=== PATIENT | female | born 1990 | race Caucasian/White ===

== ENCOUNTER 2022-03-19 16:49 | Inpatient (IN) | payer MEDICAID ==
[~2022-03-19] VITALS: Ht 170.2 cm; Wt 53.3 kg
[2022-03-19 19:24] LABS: BASOPHILS % (AUTO) 1.1 % (0.0-2.0); EOSINOPHILS % (AUTO) 1.1 % (1.0-6.0); HEMOGLOBIN 12.4 g/dL (12.0-16.0); LYMPHOCYTES # (AUTO) 1.9 K/uL (1.0-4.8); MEAN CORPUSCULAR HEMOGLOBIN 28.7 pg (26.0-34.0); MEAN CORPUSCULAR HGB CONC 32.6 G/dL (31.0-37.0); MEAN CORPUSCULAR VOLUME 88 fL (80-100); MONOCYTES # (AUTO) 0.5 K/uL (0.1-1.0); MONOCYTES % (AUTO) 9.7 % (2.0-9.0); NEUTROPHILS # (AUTO) 2.3 K/uL (1.8-7.7); NEUTROPHILS % (AUTO) 49.1 % (40.0-70.0); PLATELET COUNT (AUTO) 355 K/uL (150-450); RED BLOOD CELL COUNT(AUTO) 4.32 MIL/uL (4.00-5.20); RED CELL DISTRIBUTION WIDTH 15.2 % (11.5-14.5)
[2022-03-19 19:34] LABS: ANION GAP 6 mmol/L (8-16); CALCIUM, TOTAL 9.6 mg/dL (8.8-10.5); CARBON DIOXIDE 29 mmol/L (22-29); CHLORIDE 100 mmol/L (98-107); CREATININE 0.66 mg/dL (0.60-1.30); GLUCOSE,RANDOM 85 mg/dL (70-110); POTASSIUM 3.9 mmol/L (3.5-5.1); SODIUM SERUM 135 mmol/L (136-145); UREA NITROGEN, BLOOD 19 mg/dL (7-18)
[2022-03-19 19:38] LABS: GLOMERULAR FILTR. RATE CALC > 60 mL/min (>60)
[2022-03-19 19:40] LABS: ALANINE AMINOTRANSFERASE 19 U/L (12-78); ALBUMIN 3.6 g/dL (3.4-5.0); ALKALINE PHOSPHATASE 101 U/L (46-116); ASPARTATE AMINOTRANSFERASE 20 U/L (15-37); BILIRUBIN,TOTAL 0.2 mg/dL (0.1-1.0)
[2022-03-19 19:46] LABS: AMPHET/METH SCREEN,URINE POSITIVE (NEGATIVE); BARBITURATE SCREEN, URINE NEGATIVE (NEGATIVE); BENZODIAZEPINES SCREEN,URINE NEGATIVE (NEGATIVE); CANNABINOID SCREEN,URINE NEGATIVE (NEGATIVE); COCAINE SCREEN,URINE NEGATIVE (NEGATIVE); METHADONE SCREEN, URINE NEGATIVE (NEGATIVE); OPIATE SCREEN,URINE NEGATIVE (NEGATIVE); PHENCYCLIDINE SCREEN,URINE NEGATIVE (NEGATIVE)
[2022-03-19] MEDS ORDERED: LORazepam 2 MG/ML VIAL IM ONE (20:00)
[2022-03-19] MEDS ORDERED: HALOPERIDOL LACTATE 5 MG/ML VIAL IM ONE (20:00)
[2022-03-19] MEDS ORDERED: DiphenhydrAMINE HCL 50 MG/ML VIAL IM ONE (20:00)
[2022-03-19 20:45] LABS: APPEARANCE,URINE HAZY (CLEAR); BILIRUBIN,URINE NEGATIVE (NEGATIVE); GLUCOSE, URINE (UA) NEGATIVE (NEGATIVE); KETONES,URINE NEGATIVE (NEGATIVE); LEUKOCYTE ESTERASE ,URINE TRACE (NEGATIVE); NITRATE,URINE NEGATIVE (NEGATIVE); OCCULT BLOOD,URINE NEGATIVE (NEGATIVE); PROTEIN,URINE NEGATIVE (NEGATIVE); UROBILINOGEN,URINE <=1.0 mg/dL (<=1.0)
[2022-03-19] MEDS ORDERED: HALOPERIDOL 5 MG TABLET PO PRN (20:45)
[2022-03-19] MEDS ORDERED: LORazepam 2 MG TABLET PO PRN (20:45)
[2022-03-19 20:57] LABS: BACTERIA,URINE Rare /HPF (None Seen); RBC,URINE 0-2 /HPF (0-2); SQUAMOUS EPITHELIAL CELL,UR Few /LPF (None Seen)
[2022-03-19 22:55] LABS: COVID AG,FIA SOURCE NASOPHARYNGEAL
[2022-03-20 09:00] VITALS: BP 122/86
[2022-03-20 09:05] VITALS: BP 122/86
[2022-03-20 17:00] VITALS: BP 115/62
[2022-03-20] MEDS: OLANZapine 7.5 MG TABLET PO SCH (20:25)
[2022-03-20] MEDS: ZOLPIDEM TARTRATE 10 MG TABLET PO PRN (20:25)
[2022-03-21 08:24] VITALS: BP 116/54
[2022-03-21] MEDS: OLANZapine 7.5 MG TABLET PO SCH (20:10)
[2022-03-21] MEDS: ZOLPIDEM TARTRATE 10 MG TABLET PO PRN (20:10)
[2022-03-22 08:08] VITALS: BP 110/65
[2022-03-22] MEDS: OLANZapine 7.5 MG TABLET PO SCH (20:17)
[2022-03-23 08:41] VITALS: BP 135/87
[2022-03-23] MEDS: ZOLPIDEM TARTRATE 10 MG TABLET PO PRN (20:22)
[2022-03-23] MEDS: OLANZapine 7.5 MG TABLET PO SCH (20:22)
[2022-03-24 08:26] VITALS: BP 106/62
[2022-03-24] MEDS: OLANZapine 7.5 MG TABLET PO SCH (20:11)
[2022-03-25 06:54] LABS: COVID AG,FIA SOURCE NASAL SWAB
[2022-03-25 08:05] VITALS: BP 115/62
[2022-03-25] MEDS: ZOLPIDEM TARTRATE 10 MG TABLET PO PRN (20:11)
[2022-03-25] MEDS: OLANZapine 7.5 MG TABLET PO SCH (20:11)
[2022-03-26 09:37] VITALS: BP 129/72
[2022-03-26 16:40] VITALS: BP 112/75
[2022-03-26] MEDS: OLANZapine 7.5 MG TABLET PO SCH (20:51)
[2022-03-27 08:29] VITALS: BP 112/73
[2022-03-27 16:30] VITALS: BP 118/75
[2022-03-27] MEDS ORDERED: OLAN7.5T22 PO (19:44)
[2022-03-27] MEDS: OLANZapine 7.5 MG TABLET PO SCH (20:52)
== END 2022-03-28 07:58 | disposition home or self-care (01) | DRG 750 ==
LOC: EMS 16:52 → 3EC 23:00
PROVIDERS: ADMIT Psychiatry & Neurology Child & Adolescent Psychiatry; ATTEND Psychiatry & Neurology Child & Adolescent Psychiatry
DX: F20.0 Paranoid schizophrenia (principal); E87.1 Hypo-osmolality and hyponatremia; R45.851 Suicidal ideations; F15.10 Other stimulant abuse, uncomplicated; F19.10 Other psychoactive substance abuse, uncomplicated; Z20.822 Contact with and (suspected) exposure to COVID-19
CPT/HCPCS: 80053; 81001; 85025; 99285; G0480; J1200; J1630; J2060